=== PATIENT | female | born 2005 | race African-American/Black ===

== ENCOUNTER 2023-12-23 17:13 | Emergency (ER) | payer MEDICAID, OTHER ==
[~2023-12-23] VITALS: Ht 165.1 cm; Wt 63.0 kg
[2023-12-23 17:19] VITALS: O2SAT 100
[2023-12-23 17:57] LABS: BASOPHILS % 0.3 % (0.0-2.0); EOSINOPHILS % 1.2 % (0.0-5.0); HEMATOCRIT. 23.2 % (36.0-48.0); HEMOGLOBIN. 7.8 g/dL (12.0-16.0); LYMPHOCYTES % 31.5 % (20.0-50.0); MEAN CORPUSCULAR HGB CONC 33.6 g/dL (31.0-37.0); MEAN CORPUSCULAR VOLUME 89.4 fL (81.0-99.0); MEAN PLATELET VOLUME 6.8 fl (7.4-10.4); MONOCYTES % 11.8 % (2.0-8.0); NEUTROPHILS % 55.2 % (40.0-76.0); PLATELET 291 x1000/uL (130-400); RED CELL DISTRIBUTION WIDTH 13.1 % (11.6-14.6); WHITE BLOOD COUNT 4.8 x1000/uL (4.5-11.0)
[2023-12-23 18:00] LABS: CHLORIDE 107 mEq/L (98-107); POTASSIUM 3.4 mEq/L (3.5-5.1); SODIUM 137 mEq/L (136-145)
[2023-12-23 18:01] LABS: CALCIUM 9.2 mg/dL (8.7-10.4); CARBON DIOXIDE 23 mEq/L (21-32)
[2023-12-23 18:06] LABS: CREATININE 0.7 mg/dL (0.6-1.0); GLUCOSE 90 mg/dL (70-105)
[2023-12-23 18:12] LABS: CLARITY URINE CLEAR (CLEAR); COLOR URINE YELLOW (YELLOW); GLUCOSE URINE NEGATIVE (NEGATIVE); KETONES URINE NEGATIVE (NEGATIVE); LEUKOCYTE ESTERASE URINE 2+ (NEGATIVE); NITRITE URINE NEGATIVE (NEGATIVE); OCCULT BLOOD URINE NEGATIVE (NEGATIVE); PH URINE 6.5 (4.5-8.0); PROTEIN URINE NEGATIVE (NEGATIVE); SPECIFIC GRAVITY URINE 1.015 (1.005-1.030)
[2023-12-23 18:13] LABS: *AMPHETAMINES SCREEN URINE NEGATIVE (NEGATIVE); *BARBITURATES SCREEN URINE NEGATIVE (NEGATIVE); *BENZODIAZEPINES SCREEN URINE NEGATIVE (NEGATIVE); *COCAINE SCREEN URINE NEGATIVE (NEGATIVE); METHADONE URINE SCREEN NEGATIVE (NEGATIVE); OPIATES URINE SCREEN NEGATIVE (NEGATIVE); PHENCYCLIDINE URINE SCREEN NEGATIVE (NEGATIVE)
[2023-12-23 18:14] LABS: CANNABINOID URINE SCREEN PRESUMPTIVE POSITIVE (NEGATIVE); ECSTASY MDMA SCREEN URINE NEGATIVE (NEGATIVE)
[2023-12-23 18:22] LABS: UREA NITROGEN BLOOD < 5 mg/dL (9-23)
[2023-12-23 18:23] LABS: B-HCG QUANTITATIVE 2489 mIU/mL (<3)
[2023-12-23 18:40] LABS: BACTERIA URINE 2+; RBC URINE 0-2 /hpf (0-2); SQUAMOUS EPITHELIAL CELL URINE 1+ /lpf (RARE/1+)
[2023-12-23 18:41] LABS: TRICHOMONAS URINE FEW
[2023-12-23 21:08] VITALS: TEMP 36.83628
[2023-12-23] MEDS ORDERED: NITR-87 MT (21:31)
[2023-12-23] MEDS ORDERED: TOPUD MT (21:31)
[2023-12-23] MEDS ORDERED: ONDA4TAB50 MT (21:31)
[2023-12-23 21:33] VITALS: BP 107/54; PULSE 88; RESP 20; O2SAT 100
== END 2023-12-23 21:42 | disposition home or self-care (01) ==
LOC: ER 17:13
DX: O26.893 Other specified pregnancy related conditions, third trimester (principal); O99.513 Diseases of the respiratory system complicating pregnancy, third trimester; R10.2 Pelvic and perineal pain; Z3A.32 32 weeks gestation of pregnancy; D64.9 Anemia, unspecified
CPT/HCPCS: 36415; 76700; 76815; 80048; 80305; 81003; 84702; 85025; 86850; 86900; 99285